=== PATIENT | male | born 1945 | race Caucasian/White ===

== ENCOUNTER → 2021-03-10 | Outpatient (CLI) | payer OTHER ==
[~2021-03-10] MED LIST: ASPIR 8181 MG PO; COZAAR 50 MG TA50 M2 PO; MIRALAX17 GM PO; XANAX 0.5 MG0.5 MG PO
== END ==
LOC: SJCVCIMAG 08:47
PROVIDERS: ATTEND Internal Medicine Cardiovascular Disease
DX: I49.3 Ventricular premature depolarization (principal); R07.89 Other chest pain; I10 Essential (primary) hypertension; J44.9 Chronic obstructive pulmonary disease, unspecified; E78.00 Pure hypercholesterolemia, unspecified; G47.33 Obstructive sleep apnea (adult) (pediatric); I25.10 Atherosclerotic heart disease of native coronary artery without angina pectoris; K21.9 Gastro-esophageal reflux disease without esophagitis; E78.5 Hyperlipidemia, unspecified; F32.9 Major depressive disorder, single episode, unspecified; M19.90 Unspecified osteoarthritis, unspecified site; Z86.010 Personal history of colon polyps; Z79.899 Other long term (current) drug therapy; Z79.82 Long term (current) use of aspirin; Z88.0 Allergy status to penicillin; Z88.8 Allergy status to other drugs, medicaments and biological substances; Z87.891 Personal history of nicotine dependence; Z72.89 Other problems related to lifestyle

== ENCOUNTER → 2021-03-12 | Outpatient (CLI) | payer OTHER ==
[~2021-03-12] MED LIST changes: +ANORO ELLIPTA1 EACH INH; +VENTOLIN HFA INH8 GM INH
== END ==
LOC: SJCVC 11:33
PROVIDERS: ATTEND Internal Medicine Cardiovascular Disease
DX: R07.89 Other chest pain (principal); J43.9 Emphysema, unspecified; Z79.82 Long term (current) use of aspirin; Z79.899 Other long term (current) drug therapy

== ENCOUNTER → 2021-03-14 | Outpatient (CLI) | payer OTHER ==
[~2021-03-14] VITALS: Ht 165.1 cm; Wt 81.8 kg
[2021-03-14 08:48] VITALS: BP 177/82
--- NOTE | 2021-03-14 12:31 | CATHLAB ---
[facility] [place] [address] INVASIVE PROCEDURE REPORT Name: LYDIA WHITAKER Room #: REG YOHANNES HaTomasz#: [id number] Admission: 03/14/21 Attend Phys: Kal Cabral MD Discharge: Date of : 47 Report #: [id number] THIS REPORT FOR: cc: María Doll MD, Michelle R. MD Park, Jin S. MD ~ APPROVED REPORT Study performed: 03/14/2021 09:19:53 Patient Details Patient Status: Out-Patient Room #: The patient is a 75 year-old male Event Personnel Kal Cabral Roller Inspector And Mender, Dasia Regalado RTR ScrubJennifer Nancy RTR, OCEAN EXPORT AGENT Monitor, Ave Armas RN hammersmith helper Performed Art Access - R femoral artery* Left Heart Cath w/or w/o Coronaries [id number] [facility] [id number] Initial Mod Sed Same Phys/QHP Gr5y [id number] Hemostasis with Manual pressure 64179 Mod Sed Same Phys/QHP Ea 255194 Indication Dyspnea, Positive stress test, Chest pain Risk Factors Chronic Lung DiseaseHypercholesterolemiaPhysical Activity, Hypertension Procedure Narrative The Right Groin^ was infiltrated with 1% Lidocaine subcutaneous anesthesia. A PINNACLE 4FR Sheath #[id number] sheath was inserted into the RFA^. Coronary angiography was performed using coronary diagnostic catheters. The right coronary system was accessed and visualized with a JR4 catheter. The left coronary system was accessed and visualized with a JL4 catheter. The left ventricle was accessed and visualized with a JR4 catheter. Left ventricular/Aortic Valve gradient assessed via catheter pullback. Hemostasis was obtained with manual pressure following sheath removal without any complications. The patient tolerated the procedure well and there were no complications associated with the procedure. There was no hematoma. [facility] [address] [place] [address] INVASIVE PROCEDURE REPORT Name: LYDIA WHITAKER Room #: REG [facility]#: [id number] Admission: 03/14/21 Attend Phys: Kal Cabral MD Discharge: Date of : 47 Report #: [id number] Intraoperative Conscious Sedation Sedation start time: 1014 Case end Time: 1120 Fentanyl 100 mcg Versed 1 mg Fluoro Time: 3.13 minutes Dose: DAP 3481.60 cGycm2 383 mGy Contrast Type and Amount: Omnipaque 55 ml Coronary Angiography The patient's coronary anatomy is right dominant. Diagnostic Cath Left Main The left main artery is large caliber vessel, appears angiographically normal. LAD The LAD is a moderate-sized caliber vessel, traverses the anterior wall and wraps around the apex. There is mild disease in the midsegment, 10%. Diagonal 1 This is a small caliber vessel, patent with no flow-limiting lesions. Diagonal 2 This is a small caliber vessel, patent with no flow-limiting lesions. Circumflex This is a moderate-sized caliber vessel with mild plaquing in the proximal segment, 20%. OM1 This originates from the distal left circumflex artery, patent with no flow-limiting lesions. Right Coronary The RCA is a moderate-sized caliber vessel, with mild disease in the midsegment, 10%. R PDA This is a small to moderate-sized caliber vessel, patent with no flow-limiting lesions. RPLV This is a small to moderate-sized caliber vessel, patent with no flow-limiting lesions. Ramus This is a moderate-sized caliber vessel, supplies several branches. There is mild disease proximally, 10%. Left Ventriculography Left Ventriculography was not performed. Ejection Fraction was 55-60% based off patient's Nuclear Cardiac Stress Test. An LVEDP was measured and there is no gradient across the outflow tract. Hemodynamics The aortic pressure is 191/81 mmHg with a mean of 124 mmHg. The left ventricular pressure is 195/14 mmHg with a mean of mmHg. The left ventricular end diastolic pressure is 30 mmHg. Pullback from the left [facility] [address] [place] [address] INVASIVE PROCEDURE REPORT Name: LYDIA WHITAKER Room #: REG [facility].#: [id number] Admission: 03/14/21 Attend Phys: Kal Cabral MD Discharge: Date of : 47 Report #: [id number] ventricle to the aorta revealed a mm gradient across the aortic valve. Conclusion 1. There is mild, nonobstructive coronary artery disease. 2. This is a right dominant system. 3. There is normal LV systolic function. 4. Recommend aggressive risk factor management. <ELECTRONICALLY SIGNED> By: Kal Cabral MD 03/14/21 1231 1231 1231 Kal Cabral MD /INF
== END | disposition home or self-care (01) ==
LOC: CATH 07:59
PROVIDERS: ATTEND Internal Medicine Cardiovascular Disease
DX: R07.9 Chest pain, unspecified (principal); I25.10 Atherosclerotic heart disease of native coronary artery without angina pectoris; R06.00 Dyspnea, unspecified; I10 Essential (primary) hypertension; E78.00 Pure hypercholesterolemia, unspecified; J44.9 Chronic obstructive pulmonary disease, unspecified; E78.5 Hyperlipidemia, unspecified; K21.9 Gastro-esophageal reflux disease without esophagitis; Z98.890 Other specified postprocedural states; Z79.899 Other long term (current) drug therapy; Z79.891 Long term (current) use of opiate analgesic; Z86.73 Personal history of transient ischemic attack (TIA), and cerebral infarction without residual deficits; Z82.49 Family history of ischemic heart disease and other diseases of the circulatory system; Z90.49 Acquired absence of other specified parts of digestive tract; Z85.038 Personal history of other malignant neoplasm of large intestine; Z85.46 Personal history of malignant neoplasm of prostate; Z85.118 Personal history of other malignant neoplasm of bronchus and lung